=== PATIENT | male | born 1980 | race Caucasian/White ===

== ENCOUNTER 2018-03-20 17:54 | Emergency (ER) | payer OTHER ==
[2018-03-20 18:26] VITALS: BP 134/89
[2018-03-20] MEDS ORDERED: Aspirin 81 mg CHEW TAB* 81 MG TAB.CHEW PO ONE (18:37)
[2018-03-20] MEDS ORDERED: Aspirin 81 mg CHEW TAB* 81 MG TAB.CHEW ONE (18:41)
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
[2018-03-20] MEDS ORDERED: NS 0.9% 1000 ML* 1,000 ML IV ONE (19:04)
== END 2018-03-20 19:20 | disposition short-term general hospital (02) ==
LOC: UCEAST 17:54
DX: R07.89 Other chest pain (principal); F41.9 Anxiety disorder, unspecified; R20.2 Paresthesia of skin; R06.02 Shortness of breath; R11.0 Nausea; R61 Generalized hyperhidrosis; E03.9 Hypothyroidism, unspecified; I10 Essential (primary) hypertension; F43.10 Post-traumatic stress disorder, unspecified; Z87.891 Personal history of nicotine dependence
CPT/HCPCS: 93005; 99203; A9270-GY; G0463

== ENCOUNTER 2018-03-20 19:41 | Emergency (ER) | payer OTHER ==
[2018-03-20] MEDS ORDERED: LORazepam INJ* 2 MG/ML 1 ML VIAL IV PUSH ONE (20:03)
[2018-03-20 20:29] LABS: ABS Basophils 0 10^3/ul (0-0.2); ABS Eosinophils 0.1 10^3/ul (0-0.6); ABS Lymphocytes 2.3 10^3/ul (1.0-4.8); ABS Monocytes 0.8 10^3/ul (0-0.8); ABS Neutrophils 7.2 10^3/ul (1.5-7.7); ABS Nucleated RBC 0 10^3/ul; Eosinophil % 1.1 % (0-6); Hematocrit 48 % (42-52); Hemoglobin 16.4 g/dl (14.0-18.0); Lymphocyte % 22.2 % (25-47); Mean Corpuscular HGB Conc 34 g/dl (31-36); Mean Corpuscular Hemoglobin 30 pg (27-31); Mean Corpuscular Volume 86 fL (80-94); Mean Platelet Volume 9.4 um3 (7.4-10.4); Nucleated Red Blood Cells % 0; Platelet Count 159 10^3/ul (150-450); Red Blood Count 5.54 10^6/ul (4.00-5.40); Red Cell Distribution Width 13 % (10.5-15); White Blood Count 10.4 10^3/ul (3.5-10.8)
[2018-03-20 20:38] LABS: INR 0.98 (0.77-1.02)
[2018-03-20 20:46] LABS: EGFR Non-African American 82.2 (>60)
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
--- NOTE | 2018-03-20 21:19 | RAD ---
INDICATION: Chest pain COMPARISON: None. TECHNIQUE: Single AP portable view of the chest was obtained. FINDINGS: Image quality is compromised due to the relative inferiority of a portable chest x-ray. The heart and mediastinum exhibit normal size and contour. The lungs are grossly clear. There is no evidence of a large pleural effusion. Visualized bones are normal for the patient's age. IMPRESSION: No radiographic evidence for acute cardiopulmonary abnormality on this portable chest x-ray.
[2018-03-20 21:42] VITALS: BP 121/83
== END 2018-03-20 21:43 | disposition home or self-care (01) ==
LOC: ED 19:41
DX: R07.9 Chest pain, unspecified (principal); F41.9 Anxiety disorder, unspecified; F43.10 Post-traumatic stress disorder, unspecified; R06.02 Shortness of breath; Z87.891 Personal history of nicotine dependence; E03.9 Hypothyroidism, unspecified; Z79.899 Other long term (current) drug therapy
CPT/HCPCS: 36415; 71045; 80053; 82550; 83735; 84484; 85025; 85610; 85730; 93005; 96374; 99284; J2060

== ENCOUNTER 2018-04-18 19:00 | Emergency (ER) | payer OTHER ==
[2018-04-18 19:10] VITALS: BP 141/95
--- NOTE | 2018-04-18 19:37 | UC ---
General HPI - HPI Summary HPI Summary: [facility] for presenting Chris Archibald MD. Pt is a 37 y/o M c/o fatigue for ~1 month s/p being bitten by a tick. Assoc. Sx : REN, fatigue, nausea, arthralgia. Denies: CP, SOB, vomiting, abd pain. He reports that he can sleep 10 hours and will still wake up extremely fatigued. PMHx: thyroid. FHx: HLD, HTN. SHx: Occasional EtOH; quit smoking 4 years ago. - History of Current Complaint Chief Complaint: UCGeneralIllness Stated Complaint: LYME SYMPTOMS Time Seen by Provider: 04/18/18 19:30 Hx Obtained From: Patient Onset/Duration: Gradual Onset, Lasting Weeks, Still Present Onset Severity: Mild Current Severity: Moderate Pain Intensity: 5 Associated Signs & Symptoms: Positive: Headache, Nausea, Other - POS: fatigue. Negative: Abdominal Pain, Chest Pain, SOB, Vomiting - Allergy/Home Medications Allergies/Adverse Reactions: Allergies Allergy/AdvReac Type Severity Reaction Status Date / Time No Known Allergies Allergy Verified 04/18/18 19:09 PMH/Surg Hx/FS Hx/Imm Hx Endocrine History: Thyroid Disease - Surgical History Surgical History: None - Family History Known Family History: Positive: Cardiac Disease - maternal grandfather with [place] at age 60, Hypertension, Other - POS: HLD Negative: Diabetes - Social History Occupation: Employed Full-time Lives: Dormitory/Roommates Alcohol Use: Rare Substance Use Type: None Smoking Status (MU): Former Smoker Review of Systems Constitutional: Fatigue Respiratory: Other - NEG: SOB Cardiovascular: Other - NEG: CP Gastrointestinal: Nausea, Other - NEG: Vomiting, Abd pain Musculoskeletal: Arthralgia Neurological: Headache All Other Systems Reviewed And Are Negative: Yes Physical Exam - Summary Physical Exam Summary: VITAL SIGNS: Reviewed. GENERAL: Patient is a well-developed and nourished MALE who is lying comfortable in the stretcher. Patient is not in any acute respiratory distress. HEAD AND FACE: Normocephalic EYES: PERRLA, EOMI x 2. EARS: Hearing grossly intact. MOUTH: Oropharynx within normal limits. NECK: Supple, trachea is midline, no adenopathy, no JVD, no carotid bruit. CHEST: Symmetric, no tenderness at palpation LUNGS: Clear to auscultation bilaterally. No wheezing or crackles. CVS: Regular rate and rhythm, S1 and S2 present, no murmurs or gallops appreciated. ABDOMEN: Soft, non-tender. Bowel sounds are normal. No abdominal abnormal pulsations. EXTREMITIES: Full ROM in all major joints, no edema, no cyanosis or clubbing. NEURO: Alert and oriented x 3. No acute neurological deficits. Speech is normal and follows commands. SKIN: Dry and warm Triage Information Reviewed: Yes Vital Signs: Initial Vital Signs Temp 97.7 F 04/18/18 19:06 Pulse 84 04/18/18 19:06 Resp 18 04/18/18 19:06 BP 141/95 04/18/18 19:06 Pulse Ox 98 04/18/18 19:06 Vital Signs Reviewed: Yes Course/Dx - Course Course Of Treatment: Patient is a 37-year-old male who presents to the urgent care with chief complaint of fatigue and weakness. The patient reports that he is here for a resigning testing. He also reports that he has been having headaches, joint pain. He also reports that he has removed the tick smoke despite in the past. He denies any fever or chills or abdominal pain. He will follow with the primary care physician to rule out any other causes of the tick but he was to check for Lyme disease. He has a want to have any other testing. Patient was alert and oriented 3 and the physical exam was normal. Lyme titer was sent to the lab. - Differential Dx - Multi-Symptom Provider Diagnoses: weakness; fatigue. Discharge - Sign-Out/Discharge Documenting (check all that apply): Patient Departure - Discharge Plan Condition: Stable Disposition: HOME Patient Education Materials: Weakness (ED), Fatigue (ED) Referrals: [facility] [place] PHYSICIAN REFERRAL [Outside] No Primary Care Phys,NOPCP [Primary Care Provider] - Additional Instructions: F/U with PCP Increase water intake - Billing Disposition and Condition Condition: STABLE Disposition: Home
== END 2018-04-18 19:50 | disposition home or self-care (01) ==
LOC: UCEAST 19:00
DX: R53.1 Weakness (principal); R53.83 Other fatigue; Z87.891 Personal history of nicotine dependence
CPT/HCPCS: 86618; 99211; G0463